=== PATIENT | male | born 1970 | race Caucasian/White ===

== ENCOUNTER 2016-10-21 08:29 | Emergency (ER) | payer MEDICAID, OTHER ==
[~2016-10-21] VITALS: Ht 167.6 cm; Wt 85.0 kg
[~2016-10-21 08:29] MED LIST: CEPH500C3 PO; IBUP800T23 PO
[2016-10-21 08:30] VITALS: BP 153/70; PULSE 68; RESP 16; TEMP 97.8; O2SAT 98
--- NOTE | 2016-10-21 08:59 | PD ---
HPI Chief Complaint: Back/ Neck Pain or Injury Time Seen by Provider: 08:59 Travel History International Travel<30 days: No Contact w/Intl Traveler<30days: No Traveled to known affect area: No History of Present Illness HPI 46-year-old male with no significant medical history presents to the emergency department for evaluation right lower back pain 4 days. Pain is a constant, aching 6 out of 10. It does not radiate anywhere. Patient recalls no injury. Denies any saddle paresthesia, loss of bowel or bladder, lower extremity weakness. Patient denies any urinary symptoms. States sometimes it feels like a spasm but the ache is constantly there. No history of IV drug use. No recent illnesses, fever, chills. No other symptoms to report. PFSH Past Medical History Depression: Yes High Cholesterol: Yes Integumentary: Yes (PSORIASIS) Immunizations Current: Yes Social History Alcohol Use: Yes (VERY RARE) Tobacco Use: No Substance Use: No Allergies-Medications (Allergen,Severity, Reaction): Coded Allergies: No Known Allergies (Unverified , 10/21/16) Reported Meds & Prescriptions Reported Meds & Active Scripts Active Robaxin (Methocarbamol) 500 Mg Tab 500 Mg PO QID PRN Prednisone 20 Mg Tab 20 Mg PO BID 5 Days Keflex (Cephalexin Monohydrate) 500 Mg Cap 500 Mg PO QID Ibuprofen 800 Mg Tab 800 Mg PO TID PRN Review of Systems Except as stated in HPI: all other systems reviewed are Neg Physical Exam Narrative GENERAL: Well-nourished male patient, ambulatory and in no acute distress SKIN: Warm and dry. Scaly plaques bilateral lower extremity. HEAD: Atraumatic. Normocephalic. EYES: Pupils equal and round. No scleral icterus. No injection or drainage. ENT: No nasal bleeding or discharge. Mucous membranes pink and moist. NECK: Trachea midline. No JVD. CARDIOVASCULAR: Regular rate and rhythm. No murmur appreciated. RESPIRATORY: No accessory muscle use. Clear to auscultation. Breath sounds equal bilaterally. GASTROINTESTINAL: Abdomen soft, non-tender, nondistended. Hepatic and splenic margins not palpable. MUSCULOSKELETAL: No obvious deformities. No clubbing. No cyanosis. No edema. 5+ strength equal bilateral lower extremities. Tenderness elicited to palpation over the right sacroiliac joint. Sensation intact distal extremities. NEUROLOGICAL: Awake and alert. No obvious cranial nerve deficits. Motor grossly within normal limits. Normal speech. Data Data Last Documented VS Vital Signs Date Time Temp Pulse Resp B/P Pulse Ox O2 Delivery O2 Flow Rate FiO2 10/21/16 08:30 97.8 68 16 153/70 98 Room Air Orders Ketorolac Inj (Toradol Inj) (10/21/16 09:00) Orphenadrine Inj (Norflex Inj) (10/21/16 09:00) Splint Or Brace Apply/Monitor (10/21/16 08:57) MDM Medical Decision Making Medical Screen Exam Complete: Yes Emergency Medical Condition: Yes Medical Record Reviewed: Yes Differential Diagnosis Low back strain versus muscle spasm versus sciatica versus sacroiliitis Narrative Course 46-year-old male presents to emergency department for evaluation. Patient has tenderness elicited to palpation of the sacroiliac joint. Patient was started on short course of oral steroids and prescribed a muscle relaxant. He is provided a quick draw back brace and counseling care. He is encouraged to follow-up with a primary care provider and return immediately with any acute worsening symptoms. Diagnosis Primary Impression: Low back pain Qualified Code: M54.5 - Acute right-sided low back pain without sciatica Referrals: Primary Care Physician Patient Instructions: Acute Low Back Pain (ED), General Instructions Additional Instructions: Ice and/or warm receiving help to alleviate symptoms Follow-up with her primary care provider Avoid activity that exacerbates pain Utilize brace when ambulatory and for support. Do not wear this at all times as it will weaken your abdominal muscles, potentially worsening her back pain Return immediately to the emergency department with any acute worsening of symptoms Med/Other Pt SpecificInfo: Prescription(s) given Scripts Methocarbamol (Robaxin)500 Mg Nks727 Mg PO QID PRN (MUSCLE SPASM) #20 TAB Ref 0 Prov:Noemi Pang 10/21/16 Prednisone 20 Mg Tab20 Mg PO BID 5 Days Ref 0 Prov:Noemi Pang 10/21/16 Disposition: 01 DISCHARGE HOME Condition: Stable Noemi Pang Oct 21, 2016 08:59
[2016-10-21] MEDS ORDERED: KETOROLAC TROMETHAMINE 60 MG/2 ML (IM) VIAL IM ONE (09:00)
[2016-10-21] MEDS ORDERED: ORPHENADRINE INJ 60 MG/2 ML AMP IM ONE (09:00)
[2016-10-21] MEDS ORDERED: ROBA500T PO (09:07)
[2016-10-21] MEDS ORDERED: PRED20 PO (09:07)
== END 2016-10-21 09:43 | disposition home or self-care (01) ==
LOC: NEPB 08:29
DX: M54.5 Low back pain (principal); E78.00 Pure hypercholesterolemia, unspecified; Z87.2 Personal history of diseases of the skin and subcutaneous tissue; Z86.59 Personal history of other mental and behavioral disorders
CPT/HCPCS: 96372; 99283; J1885; J2360; L0627